=== PATIENT | female | born 1980 | race American Indian/Alaskan Native ===

== ENCOUNTER 2021-02-13 13:17 | Emergency (ER) | payer MEDICAID ==
[2021-02-13 13:34] VITALS: BP 184/76
[2021-02-13] MEDS ORDERED: traMADol 50 MG TAB PO ONE (14:23)
--- NOTE | 2021-02-13 14:24 | Emergency Department Report ---
ED Lower Extremity HPI - General Chief Complaint: Fall Stated Complaint: POSSIBLE DISLOCATED ANKLE Time Seen by Provider: 02/13/21 14:14 Source: patient Mode of arrival: Ambulatory Limitations: No Limitations - History of Present Illness Initial Comments: 40-year-old female brought to the emergency room by EMS. Patient states she was walking outside her apartment complex when she stepped in a hole with her right foot and is now complaining of right ankle and right lower leg pain. She denies any trauma to her head she denies any loss of consciousness she denies any other symptoms she is in no acute distress she has a right leg splint that was applied by EMS. MD Complaint: leg injury, ankle injury -: Sudden Injury: Leg: Right (stepped in hole twist right ankle and right leg) Type of Injury: eversion Place: home Severity scale (0 -10): 9 Improves With: immobilization Worsens With: weight bearing Context: walking Associated Symptoms: snap/pop sensation, unable to bear weight Treatments Prior to Arrival: splint - Related Data Previous Rx's Medication Instructions Recorded Last Taken Type traMADoL [Ultram 50 MG tab] 50 mg PO Q6HR PRN #20 tablet 02/13/21 Unknown Rx Allergies Allergy/AdvReac Type Severity Reaction Status Date / Time No Known Allergies Allergy Verified 02/13/21 13:31 ED Review of Systems ROS: Stated complaint: POSSIBLE DISLOCATED ANKLE Other details as noted in HPI Comment: All other systems reviewed and negative Constitutional: no symptoms reported Eyes: as per HPI ENT: denies: ear pain, throat pain Cardiovascular: denies: chest pain Gastrointestinal: denies: abdominal pain, constipation Musculoskeletal: joint swelling (right ankle ). denies: back pain ED Past Medical Hx - Past Medical History Previous Medical History?: No - Surgical History Past Surgical History?: No - Social History Smoking Status: Never Smoker Substance Use Type: None - Medications Home Medications: Home Medications Medication Instructions Recorded Confirmed Last Taken Type traMADoL [Ultram 50 MG tab] 50 mg PO Q6HR PRN #20 tablet 02/13/21 Unknown Rx ED Physical Exam - General Limitations: No Limitations General appearance: alert, in no apparent distress - Head Head exam: Present: atraumatic - Eye Eye exam: Present: normal appearance - ENT ENT exam: Present: normal exam - Neck Neck exam: Present: normal inspection - Respiratory Respiratory exam: Present: normal lung sounds bilaterally. Absent: respiratory distress, wheezes, rales - Cardiovascular Cardiovascular Exam: Present: regular rate, normal heart sounds - GI/Abdominal GI/Abdominal exam: Present: soft - Extremities Exam Extremities exam: Present: tenderness, joint swelling, other (right ankle swelling ,dp pulse intact normal sensation good cap refill) - Back Exam Back exam: Present: normal inspection. Absent: tenderness - Neurological Exam Neurological exam: Present: alert, oriented X3 - Psychiatric Psychiatric exam: Present: normal affect - Skin Skin exam: Present: warm, dry, intact ED Course Vital Signs 02/13/21 02/13/21 02/13/21 13:31 14:35 15:36 Temperature 98.3 F Pulse Rate 83 Respiratory 20 18 18 Rate Blood Pressure 184/76 O2 Sat by Pulse 99 Oximetry - Reevaluation(s) Reevaluation #1: 02/13/21 15:21 Patient in no acute distress x-ray results discussed with patient ED Lower Extremity MDM - Radiology Data Radiology results: report reviewed Right tib-fib x-ray reveals minimally displaced oblique fracture through the distal fibular meta-diaphysis and small posterior tibia malleolus fracture - Medical Decision Making 40-year-old female walking outside of her apartment she stepped into a hole she is now with a right minimally displaced oblique fracture through her distal fibula and small posterior tibial malleolus fracture. X-ray reviewed by Dr. Ramos. patient fitted with a posterior splint crutches and instructed to follow-up with orthopedics on Monday Critical Care Time: No Critical care attestation.: If time is entered above; I have spent that time in minutes in the direct care of this critically ill patient, excluding procedure time. ED Disposition Clinical Impression: Tibia/fibula fracture Qualifiers: Encounter type: initial encounter Fracture type: closed Laterality: right Qualified Code(s): S82.201A - Unspecified fracture of shaft of right tibia, initial encounter for closed fracture Disposition: TO HOME OR SELFCARE Is pt being admited?: No Does the pt Need Aspirin: No Condition: Stable Instructions: RICE Therapy for Routine Care of Injuries, [id number], Tibial and Fibular Fractures, Cast or Splint Care, Adult Additional Instructions: Rest ice and elevate your right leg do not bear weight. Until you follow-up with orthopedic doctor. Use crutches but do not use crutches for stairs. Take pain medication as prescribed. Prescriptions: traMADoL [Ultram 50 MG tab] 50 mg PO Q6HR PRN #20 tablet PRN Reason: Pain Referrals: PRIMARY CARE, [Primary Care Provider] - 3-5 Days KAYY OSEGUERA MD [Staff Physician] - 3-5 Days JOHN JOSEPH MD [Staff Physician] - 3-5 Days HOLLAND HANEY III, MD [Referring] - 3-5 Days Forms: Work/School Release Form(ED) Time of Disposition: 15:33
--- NOTE | 2021-02-13 14:59 | XRay Report ---
RIGHT TIBIA/FIBULA, 4 VIEWS INDICATION / CLINICAL INFORMATION: RIGHT LEG INJURY. COMPARISON: None available. FINDINGS: There is a minimally displaced oblique fracture through the distal fibula primarily involving the met adiaphyseal region. There does appear to be posterior tibial malleolar fracture as well. There is sig nificant soft tissue swelling noted anteriorly and laterally. No additional fractures. IMPRESSION: 1. Minimally displaced oblique fracture through the distal fibular metadiaphysis. 2. Small posterior tibial malleolar fracture. Signer Name: Hanh Wyman MD Signed: 02/13/2021 2:55 PM Workstation Name: [id number]
[2021-02-13] MEDS ORDERED: KETOROLAC 60 MG/2 ML INJ IM ONE (15:26)
== END 2021-02-13 16:12 | disposition home or self-care (01) ==
LOC: ED 13:17
DX: S82.831A Other fracture of upper and lower end of right fibula, initial encounter for closed fracture (principal); Z79.899 Other long term (current) drug therapy; W17.2XXA Fall into hole, initial encounter; Y93.89 Activity, other specified; Y92.89 Other specified places as the place of occurrence of the external cause; Y99.8 Other external cause status
CPT/HCPCS: 29515; 73590; 96372; 99283; J1885